=== PATIENT | male | born 2000 | race Caucasian/White ===

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

== ENCOUNTER → 2022-08-03 11:03 | Outpatient (BNVA) | payer MEDICAID, SELFPAY | PROVIDERS: PCP Pediatrics Adolescent Medicine; Visit Provider Surgery | DX: K40.90 Unilateral inguinal hernia, without obstruction or gangrene, not specified as recurrent (principal) | CPT/HCPCS: 99203 ==

== ENCOUNTER 2022-08-25 10:29 | Day surgery (SDC) | payer MEDICAID, SELFPAY ==
[2022-08-24 13:20] VITALS: BMI 31.0
[2022-08-25] VITALS (14 sets, daily range): BP systolic 122–146; BP diastolic 74–90; PULSE 66–101; RESP 16–18; TEMP 36.4–37.1; O2SAT 93–98
[2022-08-25] MEDS: sodium chloride 0.9% 1,000 ML 30 ML IV (10:54)
[2022-08-25] MEDS: acetaminophen 1,000 MG/100 ML PIGGYBACK 400 MG IV (10:55)
--- NOTE | 2022-08-25 11:15 | W.PM.OPSUD ---
Surgery/Procedure H&P Update DATE OF PROCEDURE: August 25, 2022 DATE H&P PERFORMED: 08/03/22 H&P UPDATE INFORMATION: I have reviewed H&P completed within last 30 days, I have examined patient prior to procedure and No changes to prior documentation PREOP DIAGNOSIS: Left inguinal Hernia PRIMARY INDICATION FOR PROCEDURE: The same PLANNED PROCEDURE: Operation Date: 08/25/22 12:00 Proposed Procedures p lap left inguinal hernia repair with possible mesh [id number],K46.9(Left) - Julien Waters MD
--- NOTE | 2022-08-25 11:59 | ANES.PREANE2 ---
Pre-Anesthetic Assessment Height/Weight: Height 1.75 m Weight 95.254 kg Temp Pulse Resp BP Pulse Ox O2 Del Method 98.5 F 78 16 142/74 98 08/25/22 10:45 08/25/22 10:45 08/25/22 10:45 08/25/22 10:45 08/25/22 10:45 08/25/22 10:46 Preop Diagnosis: Left inguinal Hernia Operation Date: 08/25/22 12:00 Proposed Procedures p lap left inguinal hernia repair with possible mesh [id number],K46.9(Left) - Julien Watesr MD Familial anesthetic complications: None Was Beta Sam taken within 24 hours: N/A Was Clonidine taken within 24 hours: N/A Last intake: Intake Last Liquid Date 08/24/22 Last Liquid Time 23:00 Last Solid Date 08/24/22 Last Solid Time 20:00 Social No alcohol and No tobacco Vapes Exam alert, oriented x 3, clear to auscultation bilaterally and regular rate & rhythm Airway Mallampati: Class I Dentition: full Pulmonary None reported CV/HEM None reported None reported Hepatic None reported GI None reported Metabolic None reported Musc/skel None reported Neuropsych None reported Anesthetic Plan ASA status: 2 Anesthesia: General Risk of > 500 ml blood loss (7ml/kg in children): No Medications/Allergies Home Medications Medication Instructions Recorded Confirmed Last Taken Type No Known Home Medications 02/16/22 08/24/22 Unknown History Allergies Allergy/AdvReac Type Severity Reaction Status Date / Time No Known Allergies Allergy Verified 08/24/22 13:19 Current Medications Generic Name Dose Route Start Last Admin Trade Name Gisela PRN Reason Stop Dose Admin Sodium Chloride 1,000 mls @ 30 mls/hr 08/25/22 10:45 08/25/22 10:54 Sodium Chloride 0.9% IV 08/26/22 10:44 30 mls/hr .Q24H PERI Administration PFSH Anesthesia Surgical History History of penectomy Family History Other Diabetes Hyperlipidemia Social History Smoking and tobacco status: current every day smoker Second hand smoke exposure: Yes Alcohol intake: never Adopted: No Highest education level completed: 11th Grade Data Anesthesia Cardiac Studies: No Data to Display
[2022-08-25] MEDS: ceFAZolin 2,000 MG in sodium chloride 0.9% (plus) 50 ML 100 MG IV (12:58)
--- NOTE | 2022-08-25 14:46 | PM.OP ---
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 Patient was identified in the holding area ,patient was transferred to the operating room where he was placed in supine position, with both arms were tucked, antibiotic was given with induction, endotracheal tube was placed per anesthesia, Cheatham catheter was attempted to be inserted by the circulating nurse and myself but resistance was met despite of having smaller [place] Cheatham catheter. And that was aborted and there was no evidence of hematuria and at the end of the procedure patient had clear urine, prep and drape of the abdomen was done under the usual sterile technique as well as the scrotal area.(Enterprise Application Analyst nurse checked with patient's mom prior to start of the procedure and she reported that her son had 3 surgeries because of hypospadias in the past) Time-out was done verifying the patient's name/date of /planned procedure destination after the procedure, all were in agreement. SCDs confirmed to be functioning, preoperative antibiotics administered per protocol, and beta lasha protocol was confirmed. A vertical skin incision of 1.2 cm was made with 11 blade knife through the supra umbilicus , incision was carried down to the subcutaneous tissue and deepened to identify the anterior fascia, two stay sutures were applied to the fascia, and safe entrance to the abdominal cavity was achieved, a Vasques trocar technique safe entry to the abdominal cavity was achieved verified by using 10 mm zero degree laparoscopy, switched to a 30 degrees scope,low flow followed by a higher flow of CO2 gas up to 15 mmHg. There was no evidence of injury to intra-abdominal structures from the port entry, attention was deviated to both groins, there was a large direct hernia defect with herniation of peritoneum and preperitoneal fat was noted on the right side, two 5 mm ports were placed on the right and left lateral aspect of the abdomen slightly above the level of the umbilicus, under direct visualization, anesthesia 2% lidocaine local was injected at all trocar sites prior to incisions. The peritoneum above the level of the iliopubic tract was incised to the right of the midline and dissection was performed to create a preperitoneal space medial to lateral aspect up to anterior superior iliac spine on the left side. Dissection was continued onto the medial aspect and the left spermatic was identified, there was evidence of indirect inguinal hernia .the sac was dissected. As it applied medial to the left inferior epigastric vessels/ dissection was performed to clear the space lateral to the spermatic cord and dorsomedial to it, the hernia sac was reduced and retracted far back, so there was an evidence of lipoma of the cord that was excised and sent for permanent pathology. Noticed that there was scarring of the hernia sac and took some time to dissected safely from the spermatic cord and preserving the pertinent structures But not limited to the vas deferens. Then a medium left 3-D mesh was rolled and placed into the abdominal cavity through the Vasques port, after the mesh was introduced it was positioned to lie in the myopectineal orifice and the mesh was unrolled and this covered the entire my myope pectineal orifice. Intra-abdominal pressure was dropped to 12 mmHg to help placement of the mesh good position On the lateral aspect of the mesh extended up to the anterior superior iliac spine on the medial aspect the mesh crossed the midline onto the right side, then using absorbable tacks, placed above the iliopubic tract onto the rectus abdominis muscle on the medial aspect and also to the lateral abdominal wall superomedial to the sacroiliac spine, then the mesh was also anchored to the pubis and the Deangelo's ligament inferiorly. The peritoneal leaflets were then brought together to cover the mesh and isolated from the other viscera, extra tacks were used to secure the peritoneum in good position. Final look demonstrated good hemostasis and the mesh in good position A total of 20 mL Exparel 40 ml Normal saline 20 ml bupivacaine 0.25% were injected at the remaining of the tacks site and trocar sites as well Final look demonstrated good hemostasis.Then the fascia on the supra umbilical fascial defect was closed using #1 PDS sutures under direct visualization using fascial closure device Arnold Gonzalez.All ports were removed,then the abdomen was desufflated. All skin incisions were closed with skin korina followed by dry dressing The patient tolerated the procedure well patient,got extubated and was transferred to the recovery area in stable condition. Clear urine was demonstrated postoperatively All counts of instruments, needles and sponges were completed Scrotal support was in place. I was present for the whole entire procedure
[2022-08-25] MEDS: HYDROmorphone 1 mg/mL INJ 1 mL 0.5 MG IVP ×2 (14:56→15:13)
--- NOTE | 2022-08-25 15:15 | ANE.PACU2 ---
Inpatient post-anesthesia follow up: Airway intact: Yes Vital signs: Temperature 97.6 F Pulse Rate 93 Respiratory Rate 18 Blood Pressure 138/79 Pulse Oximetry 96 Oxygen Delivery Me thod Room Air Oxygen Flow Rate Fraction of Inspir ed Oxygen Hydration adequate: Yes Nausea and vomiting: No Pain level: 1 Mental status: Baseline
--- NOTE | 2022-08-25 15:16 | SUR.PHASEI ---
1452 PT TO PACU 5 PT AWAKE ALERT C/O OF PAIN OF8/10 PT RESTLESS AND MOANING, HOB AT 30 DEGREES, PT ON RA SATS 96% RESP EVEN AND UNLABORED, ABDOMEN SOFT WITH 3 SITES WITH BANDAIDS AND CORDELL FLUFFS AND SCROTAL SUPPORT. IV TO LT AC #20 WITH NS 250ML UP AT KVO RATE PER GRAVITY. ID BANDS TO RT WRIST PT ID'D WITH 2 IDENTIFIERS. MONITOR SR WITH NO ECTOPY NOTED. SEE PAIN MED ORDERED BY GIOVANNI AQUINO AT BEDSIDE WE ARE TO GIVE DILAUDID FIRST FOR PAIN IN PACU PER PROTOCOL.
--- NOTE | 2022-08-25 15:40 | SUR.PHASEI ---
1534 PT TO OPS BAY 6 HANDOFF TO BOAZ RAJAN AT BEDSIDE, ABDOMEN SOFT SITES UNCHANGED, PT REQUESTS SPRITE TO SIP ON.
[2022-08-25] MEDS: HYDROcodone-acetaminophen 5-325 mg Tablet 1 TAB PO (15:58)
== END 2022-08-25 16:32 | disposition home or self-care (01) ==
PROVIDERS: PCP Pediatrics Adolescent Medicine; Visit Provider Surgery
PROC: (CPT 49650; principal; 2022-08-25 12:00)
DX: K40.90 Unilateral inguinal hernia, without obstruction or gangrene, not specified as recurrent (principal); D17.6 Benign lipomatous neoplasm of spermatic cord; F17.210 Nicotine dependence, cigarettes, uncomplicated
CPT/HCPCS: 49650; 88302; 88304; C9290; J1100; J1170; J2250; J2405; J2704; J3010; J3490; J7030

== ENCOUNTER 2022-08-26 01:56 | Emergency (ER) | payer MEDICAID, SELFPAY ==
--- NOTE | 2022-08-26 01:59 | W.ED.ABDPA2 ---
HPI - Abdominal Pain General: Chief Complaint: Abdominal Pain Stated Complaint: Pain from Surgery Time Seen by Provider: 08/26/22 01:57 History of Present Illness: Mr. Gant is a 21-year-old male postop day 1 from laparoscopic hernia repair presents to the emergency department due to abdominal pain and syncope. He reports getting up to go pee when he felt a popping sensation in his mid abdomen and then some pain. He tried to walk out of the room and got lightheaded and fainted. Denies current neurologic symptoms, headache, significant head trauma. Still has moderate intensity aching abdominal pain. He has been taking his medications as prescribed. No other specific changes in health, exacerbating, or alleviating factors identified. Onset (ago): minute(s) Pain Consistency: constant Severity: moderate Context: recent surgery/procedure Review of Systems General: Reports: 10 or more systems reviewed and unremarkable except in HPI and below PFSH ED PFSH: Surgical History History of penectomy Family History Other Diabetes Hyperlipidemia Social History Smoking and tobacco status: current every day smoker Second hand smoke exposure: Yes Alcohol intake: never Adopted: No Highest education level completed: 11th Grade Physical Exam Const: COMMON NORMALS: patient oriented x3 and alert GENERAL APPEARANCE: cooperative and well developed HENMT: COMMON NORMALS: normocephalic and atraumatic HEAD & SCALP: normocephalic and atraumatic Eye: COMMON NORMALS: conjunctivae normal CONJUNCTIVA: Yes conjunctivae normal SCLERA: sclerae normal Neck/C-Spine: COMMON NORMALS: supple GENERAL: Yes trachea midline Resp: COMMON NORMALS: normal respiratory effort EFFORT & INSPECTION: Yes able to speak in complete sentences Cardio: COMMON NORMALS: regular rate and regular rhythm RATE: regular rate RHYTHM: regular rhythm GI: COMMON NORMALS: Soft to palpation PALPATION: Yes Soft to palpation, Yes Tenderness to palpation present (GI) (Degree of tenderness is consistent with postoperative state. ), No Guarding due to palpation present (GI) and No Rigid due to palpation PERCUSSION: normal to percussion Extremity: GENERAL: Yes normal exam except as noted and No edema Neuro: COMMON NORMALS: patient oriented x3, CN's II-XII intact bilaterally, moves all extremities, no focal motor deficits and no sensory deficits noted SENSORIUM/ORIENTATION: Yes alert and No Orientation impaired Psych: COMMON NORMALS: mental status grossly normal and Normal thought process present THOUGHT PROCESS: Normal thought process present Course Vital Signs: Vital signs: Vital Signs Temperature 98.0 F 08/26/22 02:06 Pulse Rate 90 08/26/22 04:41 Respiratory Rate 16 08/26/22 04:41 Blood Pressure 154/73 08/26/22 03:30 Pulse Oximetry 98 08/26/22 04:41 Oxygen Delivery Me thod 08/26/22 03:30 MDM - Abdominal Pain Medical Decision Making 21-year-old male presenting with abdominal pain and syncope recently postoperative. Patient is nontoxic in appearance and there is no evidence of focal neurologic deficits. Abdominal exam is within expected range without evidence of peritonitis or distention. Vitals are satisfactory. Hemoglobin is not low, no acute electrolyte derangements. Discussed with general surgery, no indication for imaging at this time. Patient improved upon reassessment. Most likely etiology is syncope other related to pain or postoperative state. It is possible that the increased pain is secondary to internal suture however there is no evidence of wound dehiscence externally. The results of ED evaluation were discussed with the patient including prescriptions and/or symptomatic cares (if applicable) including appropriate and responsible use, followup plan, and return precautions. The patient verbalized understanding and felt safe for discharge. Medical Records I reviewed the patient's medical records. Lab Data I reviewed the patient's lab results. : 08/26/22 02:37 08/26/22 03:28 Labs/Radiology: Laboratory Results Hgb 16.1 g/dL (11.7-16.6) 08/26/22 02:37 Hct 47.3 % (42.0-52.0) 08/26/22 02:37 Sodium 136 mmol/L (136-145) 08/26/22 03:28 Potassium 4.5 mmol/L (3.5-5.1) 08/26/22 03:28 Chloride 102 mmol/L (98-107) 08/26/22 03:28 Carbon Dioxide 23 mmol/L (22-29) 08/26/22 03:28 Anion Gap 15.5 (5-19) 08/26/22 03:28 BUN 17 mg/dL (6-20) 08/26/22 03:28 Creatinine 0.8 mg/dL (0.7-1.2) 08/26/22 03:28 GFR Calculation 124.5 mL/min (90-130) 08/26/22 03:28 Glucose 114 mg/dL (65-115) 08/26/22 03:28 Calculated Osmolality 284 mOsm/kg (285-295) L 08/26/22 03:28 Calcium 9.5 mg/dL (8.5-10.5) 08/26/22 03:28 Discharge Plan Discharge Patient Disposition: Home Clinical Impression: Post-op pain, Syncope Condition: Stable Prescriptions: New Miralax 17 gram powder in packet 17 g PO BID Qty: 30 0RF No Action hydrocodone-acetaminophen 5-325 mg tablet 1 tab PO Q6H PRN (Reason: pain) Qty: 28 0RF Discharge Orders: Discharge ED (Routine); Ordered 08/26/22 Ordered By: Sukhjinder Aquino Referrals: Fouzia Sanon MD [Primary Care Provider] - Discharge Diet: Advance as tolerated and Clear Liquid Discharge Activity: Limit activity as instructed Activity Restrictions/Additional Instructions: Thank you for visiting the emergency department. You were seen evaluated for abdominal pain and fainting. The exact cause of the symptoms is unclear though likely just related to postoperative state. Please follow-up with Dr. Waters. Return to the emergency department for uncontrolled pain, worsening symptoms, inability tolerate oral intake, recurrent syncope, or anything else that you are concerned about a feel needs emergency department evaluation Coding Level of Care Code ED [employer] for [employer] [employer]
[2022-08-26 02:01] VITALS: BP 147/91; PULSE 86; RESP 16; TEMP 36.7; O2SAT 98; BMI 31.0
[2022-08-26 02:06] VITALS: BP 147/91; PULSE 86; RESP 16; TEMP 36.7; O2SAT 98
[2022-08-26 02:41] VITALS: RESP 18
[2022-08-26 02:41] LABS: Hematocrit 47.3 % (42.0-52.0); Hemoglobin 16.1 g/dL (11.7-16.6)
[2022-08-26] MEDS: morphine 4 mg/mL SDV 1 mL IVP (02:41)
[2022-08-26] MEDS: sodium chloride 0.9% 1,000 ML 999 ML IV (02:41)
[2022-08-26 03:30] VITALS: BP 154/73; PULSE 92; RESP 16; O2SAT 98
[2022-08-26 03:57] LABS: Anion Gap 15.5 (5-19); Blood Urea Nitrogen 17 mg/dL (6-20); Calcium 9.5 mg/dL (8.5-10.5); Carbon Dioxide 23 mmol/L (22-29); Chloride 102 mmol/L (98-107); Glomerular Filtration Rate 124.5 mL/min (90-130); Glucose 114 mg/dL (65-115); Osmolality Calculated 284 mOsm/kg (285-295); Potassium 4.5 mmol/L (3.5-5.1); Sodium 136 mmol/L (136-145)
[2022-08-26] MEDS: HYDROmorphone 1 mg/mL INJ 1 mL 0.5 MG IVP (03:57)
[2022-08-26 04:41] VITALS: PULSE 90; RESP 16; O2SAT 98
== END 2022-08-26 04:42 | disposition home or self-care (01) ==
PROVIDERS: Emergency Provider Emergency Medicine; PCP Pediatrics Adolescent Medicine
DX: G89.18 Other acute postprocedural pain (principal); R55 Syncope and collapse; F17.210 Nicotine dependence, cigarettes, uncomplicated
CPT/HCPCS: 80048; 85014; 85018; 96361; 96374; 96375; 99284; J1170; J2270; J7030

== ENCOUNTER 2023-07-17 12:56 | Emergency (ER) | payer MEDICAID, SELFPAY ==
[2023-07-17 13:01] VITALS: BP 130/83; PULSE 74; RESP 16; TEMP 36.7; O2SAT 100; BMI 28.8
--- NOTE | 2023-07-17 13:16 | W.ED.GENADLT ---
HPI - General Adult General: Chief complaint: Upper Respiratory Infection Stated complaint: throat is swelling Time Seen by Provider: 07/17/23 13:11 Source: patient and family Mode of arrival: ambulatory History of Present Illness: Patient with complaints of pain and pustule to left tonsil since 4 days ago. No fever. Patient noticed uvula was swelling today and came to the emergency room for evaluation. Patient continues to have a sore throat mostly on the left. Denies any other problems. Possible history is unremarkable. Social history does smoke cigarettes/vapes. Past surgical history includes hypospadias repair and inguinal hernia repair. No ENT surgery. Onset (ago): day(s) (4) Severity: moderate Quality: aching Pain Consistency: constant Relieving factors: none Exacerbating factors: other (Swallowing) Associated symptoms: Deny chest pain, dyspnea, headache(s), nausea, rash, palpitations or vomiting Treatments prior to arrival: none Review of Systems Const: Denies: fever(s) or chills Eyes: Denies: change in vision ENMT: Reports: throat pain, uvular edema, odynophagia and oral sores; Denies: enlarged tonsils, mouth pain, swelling of lips/tongue, bleeding gums, dental pain or halitosis Card: Denies: chest pain or palpitations Resp: Denies: dyspnea or wheezing GI: Denies: abdominal pain, nausea or vomiting : Denies: flank pain Musc: Denies: neck pain or back pain Skin/Breast: Denies: rash or pruritus Neuro: Denies: headache(s) or numbness in extremities Psych: Denies: anxiety Cyrus/Lymph: Denies: enlarged lymph nodes PFS ED PFSH: Medical History Left groin hernia Surgical History History of penectomy Family History Other Diabetes Hyperlipidemia Social History Smoking and tobacco status: current every day smoker Second hand smoke exposure: Yes Alcohol intake: never Adopted: No Highest education level completed: 11th Grade Physical Exam Const: COMMON NORMALS: no acute distress, patient oriented x3, no limitations and well nourished GENERAL APPEARANCE: cooperative HENMT: COMMON NORMALS: normocephalic and atraumatic HEAD & SCALP: normocephalic and atraumatic FACE & SINUS: normal facial exam THROAT: uvular edema OTHER: Patient has a small shallow ulcer on the left anterior tonsil. No edema of either tonsil. Mild erythema of the uvula and left tonsil. No peritonsillar abscess. Posterior pharynx appears normal. No exudate. Eye: COMMON NORMALS: EOMs intact bilaterally Neck/C-Spine: COMMON NORMALS: full ROM, no lymphadenopathy, supple and no meningeal signs GENERAL: Yes normal visual inspection Lymph: LYMPHATIC: no lymphadenopathy noted Chest: COMMONS NORMALS: normal inspection of the chest and normal palpation of entire chest wall CHEST: No Ecchymosis present and No rash Resp: COMMON NORMALS: normal respiratory effort, No retractions and clear to auscultation bilaterally EFFORT & INSPECTION: No respiratory distress AUSCULTATION: clear to auscultation bilaterally Cardio: COMMON NORMALS: regular rate, regular rhythm and Peripheral pulses 2+ throughout JUGULAR VENOUS DISTENTION: no JVD RATE: regular rate RHYTHM: regular rhythm PERIPHERAL PULSES: Peripheral pulses 2+ throughout GI: COMMON NORMALS: Normal to inspection, nondistended, normoactive bowel sounds present, Soft to palpation, non-tender, No hepatosplenomegaly present and no masses PALPATION: Yes Soft to palpation and Yes No hepatosplenomegaly present : COMMON NORMALS: Yes no CVA tenderness BLADDER/KIDNEY EXAM: Yes no CVA tenderness Back/Pelvis: COMMON NORMALS: no CVA tenderness Extremity: COMMON NORMALS: normal to inspection, full ROM and capillary refill normal Neuro: COMMON NORMALS: patient oriented x3, CN's II-XII intact bilaterally, no focal motor deficits and no sensory deficits noted MENINGEAL SIGNS: Yes no meningeal signs Psych: COMMON NORMALS: mental status grossly normal and Normal thought process present THOUGHT PROCESS: Normal thought process present Skin: COMMON NORMALS: no rashes or lesions noted and no wounds GENERAL SKIN EXAM: no rashes or lesions noted Course Vital Signs: Vital signs: Vital Signs Temperature 98.0 F 07/17/23 13:01 Pulse Rate 74 07/17/23 13:01 Respiratory Rate 16 07/17/23 13:01 Blood Pressure 130/83 07/17/23 13:01 Pulse Oximetry 100 07/17/23 13:01 Oxygen Delivery Me thod Room Air 07/17/23 13:01 MDM - General Adult Medical Decision Making 22-year-old male with sore throat, swollen uvula, ulcer to left tonsil. Differential diagnoses include strep pharyngitis, viral syndrome, aphthous ulcer. Strep test is negative. Will treat as viral pharyngitis. Will cover with Zithromax in case there is any bacterial component. Lab Data Laboratory Results Group A Strep Rapid Negative (Negative) 07/17/23 13:48 Discharge Plan Discharge Patient Disposition: Home Clinical Impression: Pharyngitis Qualifiers: Pharyngitis/tonsillitis etiology: unspecified etiology Qualified Code(s): J02.9 - Acute pharyngitis, unspecified Condition: Stable Prescriptions: New Zithromax Z-Roland 250 mg tablet See Rx Instructions .ROUTE .COMPLEX Qty: 6 0RF Rx Instructions: take 500 mg today (day 1), then 250 mg for 4 days (days 2-5) prednisone 20 mg tablet 20 mg PO DAILY 5 Days Qty: 5 1RF Rx Instructions: for inflammation Discharge Orders: Discharge ED (Routine); Ordered 07/17/23 Ordered By: Jayce Hardwick Referrals: Fouzia Sanon MD [Primary Care Provider] - Discharge Diet: Usual diet Discharge Activity: Resume usual activity Patient Instructions: Pharyngitis (ED) Activity Restrictions/Additional Instructions: Start prednisone and Zithromax antibiotic tomorrow. Drink plenty fluids. May take ibuprofen and/or Tylenol as needed for pain. Rinse and spit out salt water 3 times a day to help with sore throat. Off work for 3 days. Strep test was negative today. Stand Alone Forms: Work/School Release Coding Level of Care Code ED Health And Fitness Instructor for Colleen Daniels
[2023-07-17 14:29] LABS: Rapid Strep A Test Negative (Negative)
== END 2023-07-17 14:49 | disposition home or self-care (01) ==
PROVIDERS: Emergency Provider Family Medicine; PCP Pediatrics Adolescent Medicine
DX: J02.9 Acute pharyngitis, unspecified (principal); F17.210 Nicotine dependence, cigarettes, uncomplicated
CPT/HCPCS: 87081; 87880; 99283